=== PATIENT | male | born 1950 | race Caucasian/White ===

== ENCOUNTER 2016-12-01 12:37 | Emergency (ER) | payer MEDICARE ==
[~2016-12-01] VITALS: Ht 167.6 cm; Wt 84.1 kg
[~2016-12-01 12:37] MED LIST: CALC1CAP5 PO; CITA40TA PO; FERR236T PO; IRON1TAB96 PO; KEPPRA250 M1 PO; LAM100 PO; LEVE10002 PO; NADO20TA PO; PRI20 PO; SYN.112T PO; TERA10CA5 PO
[2016-12-01 12:39] VITALS: BP 101/70; PULSE 52; RESP 18; O2SAT 99
[2016-12-01 12:52] VITALS: BP 127/76; PULSE 49; RESP 19; O2SAT 98
--- NOTE | 2016-12-01 12:53 | ED.REPORT ---
HPI-Chest Pain 40 and Over Date of Service Dec 01, 2016 ED Provider: Ty East MD Patient is a 66 year old male with a history of hypertension, epilepsy and hepatitis C who presents to the ED complaining of an episode of chest pain onset 8 days ago. Associated symptoms include dyspnea with exertion for the past week but has since resolved and pain that radiated into his back and neck. The patient reports that he felt similar chest tightness a couple months ago that resolved. Patient reports that he is no longer experiencing chest pain or shortness of breath with exertion. Nursing Notes Stated Complaint: CHEST PAIN/SOB Chief Complaint: Chest Pain Nursing Notes Reviewed: Yes Allergies: Coded Allergies: No Known Allergies (Unverified , 12/01/16) Scheduled Calcium Carbonate/Vitamin D3 (Calcium 600+D Softgel) 1 Each Capsule 1 EACH PO DAILYWL Citalopram-Expunged Drug, Do Not Renew! (Citalopram-Expunged Drug, Do Not Renew! ) 40 Mg Tablet 40 MG PO DAILY Iron &Iron Asp Gly/Fa/Mv,Min38 (Iron Tablet) 1 Each Tablet 65 MG PO DAILY Levetiracetam-Expunged Drug, Do Not Renew! (Levetiracetam-Expunged Drug, Do Not Renew!) 1,000 Mg Tablet 1,000 MG PO BIDWM Levetiracetam-Expunged Drug, Do Not Renew! (Keppra-Expunged Drug, Do Not Renew! ) 250 Mg Tablet 250 MG PO DAILYWD Levothyroxine Inactive Drug Do Not Use (Synthroid-Expunged Drug, Do Not Renew!) 112 Mcg Tablet 112 MCG PO DAILY Nadolol-Expunged Drug, Do Not Renew! (Nadolol-Expunged Drug, Do Not Renew!) 20 Mg Tablet 20 MG PO BID Omeprazole-Expunged Drug, Do Not Renew! (Omeprazole-Expunged Drug, Do Not Renew! ) 20 Mg Capcr 20 MG PO DAILY Terazosin-Expunged Drug, Do Not Renew! (Hytrin-Expunged Drug, Do Not Renew!) 10 Mg Capsule 10 MG PO HS lamoTRIgine-Expunged Drug, Do Not Renew! (Lamictal-Expunged Drug, Do Not Renew! ) 100 Mg Tablet 100 MG PO BIDWM Miscellaneous Medications Ferrous Gluc-Expunged Drug, Do Not Renew! (Iron-Expunged Drug, Do Not Renew!) 236 Mg Tablet 236 MG PO General Time Seen by MD: 12:51 Chief Complaint Chest pain Hx Obtained From: Patient Arrived By: Walk-in Sudden in Onset?: Yes Onset Occurred: 1 week ago Symptom Duration: Intermittent Location: : Substernal Quality: Heaviness Radiation: : Back: Neck Severity: Current: No pain currently Severity: Maximum: Moderate Recent Healthcare: Recent doctor visit Past Medical History Past Medical History epilepsy Hep C Reports: Hypertension Smoking History Former Smoker Ambulatory Status Independent Review of Systems Constitutional: Denies: Chills, Fever Respiratory: Denies: Non-productive cough Cardiovascular: Reports: Chest pain, Dyspnea on exertion GI: Denies: Nausea, Vomiting Musculoskeletal: Reports: Back pain, Neck pain Skin: Denies Diaphoresis, Denies Itching, Denies Rash Neurologic: Denies: Numbness, Weakness Complete sys rev & neg: except as marked. Physical Exam Initial Vital Signs Vital Signs (First) Date Time Temp Pulse Resp B/P Pulse Ox O2 Delivery O2 Flow Rate FiO2 12/01/16 12:39 36.6 52 18 101/70 99 Room Air Initial VS: Reviewed General/Constitutional: Awake, Alert, No acute distress Respiratory / Chest: Atraumatic, Breath sounds NL, Breath sounds = bilat, No respiratory distress Cardiovascular: Regular rhythm, Heart sounds NL Heart Rate / Rhythm: Positive: Bradycardia Abdomen: Atraumatic, Soft, Non-tender Neck: Atraumatic, Supple Lower Extremity / Pelvis / MS: Atraumatic, Full range of motion, No edema Skin: Atraumatic, Color NL, No rash, Warm, Dry Neurologic: Oriented X3, Speech NL Psychiatric: Affect NL, Mood NL Head / Eyes: Atraumatic, Normocephalic, PERRL, EOMI Interpretation & Diagnostics Lab Results Interpretation Result Diagram: 12/01/16 1240 12/01/16 1240 Test 12/01/16 12:40 White Blood Count 3.8th/mm3 (3.8-10.1) Red Blood Count 4.13mil/mm3 (4.40-5.80) Hemoglobin 12.0g/dL (13.8-17.2) Hematocrit 35.8% (41.0-50.0) Mean Corpuscular Volume 86.7fL (81-100) Mean Corpuscular Hemoglobin 29.1pg (27.0-35.0) Mean Corpuscular Hemoglobin Concent 33.5% (32.0-37.0) Red Cell Distribution Width 13.7% (12.3-15.4) Platelet Count 114bil/L (150-400) Neutrophils (%) (Auto) 59.5% (40-74) Lymphocytes (%) (Auto) 22.9% (14-46) Monocytes (%) (Auto) 15.4% (4-12) Eosinophils (%) (Auto) 1.9% (0-5) Basophils (%) (Auto) 0.3% (0-3) Sodium Level 139mEq/L (134-144) Potassium Level 4.7mEq/L (3.5-5.2) Chloride Level 105mEq/L (97-108) Carbon Dioxide Level 20mmol/L (18-29) Blood Urea Nitrogen 23mg/dL (8-27) Creatinine 1.02mg/dL (0.76-1.27) Estimat Glomerular Filtration Rate 78mL/min (>59) Glucose Level 109mg/dL (60-99) Calcium Level 9.0mg/dL (8.5-10.1) Magnesium Level 2.2mg/dL (1.6-2.6) Total Bilirubin 0.3mg/dL (0.0-1.2) Aspartate Amino Transf (AST/SGOT) 20U/L (0-50) Alanine Aminotransferase (ALT/SGPT) 18U/L (0-44) Alkaline Phosphatase 67U/L (25-160) Troponin T < 0.010ug/L (0.0-0.011) Total Protein 7.0g/dL (6.4-8.4) Albumin 4.3g/dL (3.4-5.0) ECG Interpretation ECG Interpretation: sinus bradycardia, rate 49 borderline prolonged SD interval Time: 12:56 Interpreted by: ED physician X-Ray Chest Interpretation Chest Xray Interpretation: IMPRESSION: No acute pulmonary process. Dictated by: Tracy Carmona M.D. on 12/01/2016 at 13:22 Approved by: Tracy Carmona M.D. on 12/01/2016 at 13:23 View: Portable, 1 view Interpretation / Wet Read by: Interpret - Radiologist Re-Eval/Medical Decision Time of Eval: 14:07 Re-Evaluation/Progress Note: Discussed results and plan for discharge. Patient understands and agrees to plan. All questions were addressed. Counseled Regarding: Diagnosis, Lab results, Need for follow-up, When/why to return to ED Discharge & Departure Primary Impression: Chest pain Chest pain type: unspecified Qualified Code: R07.9 - Chest pain, unspecified Disposition: Home Discharge Condition All VS Reviewed: Yes Condition: Stable Patient Instructions: Chest Pain (ED) Additional Instructions: Your chest X-ray, EKG and labs were normal and reassuring. There was no evidence of an immediately dangerous cause of your symptoms identified. Follow up with your primary care physician next week. You may need further evaluation for the pains you have been experiencing. Return to the emergency department if you develop any new or concerning symptoms Referrals: Kevin Mallory MD (PCP) Yony Attestation Portions of this note were transcribed by Micki Orellana. I, Dr. East personally performed the history, physical exam and medical decision-making; I reviewed and confirmed the accuracy of the information in the transcribed note. Signed by: Yony Rodarte, 12/01/16 copies to: Kevin Mallory MD, Kirk H MD Dec 01, 2016 12:53 Grazyna Orellana Dec 01, 2016 13:02
[2016-12-01 13:04] LABS: BASOPHILS % (AUTO) 0.3 % (0-3); EOSINOPHILS % (AUTO) 1.9 % (0-5); MONOCYTES % (AUTO) 15.4 % (4-12); Mean Corpuscular Hemoglobin 29.1 pg (27.0-35.0); Mean Corpuscular Volume 86.7 fL (81-100); NEUTROPHILS % (AUTO) 59.5 % (40-74); Platelet Count 114 bil/L (150-400)
--- NOTE | 2016-12-01 13:24 | DRSVH ---
PROCEDURE: X-RAY CHEST ONE VIEW, PORTABLE ([id number]) INDICATIONS: cp TECHNIQUE: One view of the chest was acquired. COMPARISON: [facility], CR, CHEST 1VW (PORTABLE), 12/27/2009, 5:33. [facility], CR, CHEST 1VW (PORTABLE), 12/28/2009, 5:45. FINDINGS: Surgical changes and devices: Multiple upper abdominal clips. Lungs and pleura: No pleural effusions or pneumothorax. Lungs are clear. Persistent right hemidiaph ragm elevation hemidiaphragm elevation. Mediastinum: Mediastinal contours appear normal. Heart size is normal. Bones and chest wall: No suspicious bony lesions. Overlying soft tissues appear unremarkable. IMPRESSION: No acute pulmonary process. Dictated by: Tracy Carmona M.D. on 12/01/2016 at 13:22 Approved by: Tracy Carmona M.D. on 12/01/2016 at 13:23
[2016-12-01 13:28] LABS: TROPONIN T < 0.010 ug/L (0.0-0.011)
[2016-12-01 13:38] LABS: Magnesium 2.2 mg/dL (1.6-2.6)
[2016-12-01 14:00] VITALS: BP 125/81; PULSE 46; RESP 17; O2SAT 95
== END 2016-12-01 14:16 | disposition home or self-care (01) ==
LOC: SED 12:37
DX: R07.2 Precordial pain (principal); R06.00 Dyspnea, unspecified; M54.9 Dorsalgia, unspecified; I10 Essential (primary) hypertension; G40.909 Epilepsy, unspecified, not intractable, without status epilepticus; Z87.891 Personal history of nicotine dependence